=== PATIENT | male | born 1965 | race Caucasian/White ===

== ENCOUNTER 2017-06-14 18:45 | Inpatient (IN) ==
[2017-06-14] MEDS ORDERED: Aspirin 81 MG TAB.CHEW PO ONE (18:48)
--- NOTE | 2017-06-14 18:55 | Emergency Department Note ---
Disposition Clinical Impression: Duodenitis Pancreatitis Qualifiers: Chronicity: acute Pancreatitis type: unspecified pancreatitis type Acute pancreatitis complication: unspecified Qualified Code(s): K85.90 - Acute pancreatitis without necrosis or infection, unspecified Disposition: Admitted As Inpatient Condition: Good Referrals: Naya Pettit CNP [Primary Care Provider] - Time of Disposition: 22:11 Chest Pain HPI - General Chief Complaint: ED Chest Pain Stated Complaint: CP Time Seen by Provider: 06/14/17 18:48 Source: patient Mode of arrival: wheelchair Limitations: no limitations Vital Signs Reviewed: Yes Nursing Notes Reviewed: Yes - History of Present Illness HPI Narrative: 52-year-old male who comes in complaining of chest pain off and on all day. 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 Duration: intermittent Onset: during rest Pain Location: substernal, left chest Severity: none Quality: tightness, aching Pain Radiation: none Worsens with: nothing Associated symptoms: Denies: nausea, vomiting, diaphoresis Treatments prior to arrival chest pain: none - Related Data Home Medications Medication Instructions Recorded Confirmed Aspirin [Adult Low Dose Aspirin EC] 81 mg PO DAILY #0 03/16/15 06/19/15 Insulin DETEMIR [Levemir] 45 unit SQ BID #0 03/16/15 06/19/15 Insulin LISPRO [Humalog] 20 unit SQ BID #0 03/16/15 06/19/15 Lisinopril [Zestril] 0 mg PO DAILY #0 03/16/15 06/19/15 Albuterol Sulfate [Ventolin Hfa] 2 puff IH Q4H PRN 06/19/15 06/19/15 Cholecalciferol (Vitamin D3) 400 unit PO DAILY 06/19/15 06/19/15 [Vitamin D3] Cyclobenzaprine [Flexeril] 5 mg PO TID PRN 06/19/15 06/19/15 Furosemide [Lasix] 40 mg PO DAILY 06/19/15 06/19/15 Gabapentin [Neurontin] 600 mg PO BID 06/19/15 06/19/15 Mometasone/Formoterol [Dulera 100 2 puff IH BID 06/19/15 06/19/15 Mcg/5 Mcg Inhaler] Potassium Gluconate 75 mg PO DAILY 06/19/15 06/19/15 glyBURIDE [GlyBURIDE] 10 mg PO BID 06/19/15 06/19/15 metFORMIN [Glucophage] 1,000 mg PO BID 06/19/15 06/19/15 Previous Rx's Medication Instructions Recorded OxyCODONE/APAP 10/325 [Percocet 1 each PO Q6HR PRN #20 tablet 06/19/15 10/325 MG] Tamsulosin [Flomax] 0.4 mg PO DAILY #30 cap.er.24h 06/19/15 HYDROcodone/Acet 5/325 mg [[place] 1 tab PO Q6H #16 tab 05/20/16 5-325 mg] Tamsulosin [Flomax] 0.4 mg PO DAILY #21 cap.er.24h 05/20/16 HYDROcodone/Acet 5/325 mg [[place] 1 tab PO Q4H PRN #12 tab 09/03/16 5-325 mg] Ondansetron HCl [Zofran] 4 mg PO Q8HR PRN #24 tablet 09/03/16 Allergies Allergy/AdvReac Type Severity Reaction Status Date / Time Penicillins [PCN] AdvReac Unknown BLEEDING Verified 06/14/17 18:59 All systems ED: reviewed and negative except as stated. Constitutional: Denies: fever, chills, weakness, weight change Eyes: Denies: eye pain, eye discharge, vision change ENT ED: Denies: ear pain, throat pain, dental pain, hearing loss, epistaxis, congestion, dysphagia Cardiovascular: Reports: chest pain. Denies: palpitations, dyspnea on exertion , edema, syncope Respiratory: Denies: cough, dyspnea, wheezes, hemoptysis, stridor Gastrointestinal: Denies: abdominal pain, nausea, vomiting, diarrhea, constipation, hematemesis, melena, hematochezia Genitourinary: Denies: urgency, dysuria, frequency, hematuria Musculoskeletal: Denies: back pain, neck pain, arthralgia, myalgia Integumentary: Denies: rash, abrasion, lesions Neurological: Denies: headache, weakness, numbness, paresthesias, confusion, abnormal gait, vertigo Psychiatric: Denies: anxiety, depression, suicidal thoughts, homicidal thoughts , auditory hallucinations, visual hallucinations Endocrine: Denies: fatigue Hematological/Lymphatic: Denies: easy bleeding, easy bruising Allergic/Immunologic: Denies: facial swelling, urticaria Chest Pain PMH - Past Medical History Medical history: Reports: arthritis, CHF, COPD, diabetes, hypertension, kidney stones Surgical history: Reports: non-contributory Psychiatric history: Reports: no psych history - Social History Smoking Status: Current every day smoker Alcohol use: Reports: rarely Drug use: Reports: none Physical Exam - General Limitations: no limitations General appearance: alert, in no apparent distress - Head Head exam: atraumatic, normocephalic, normal inspection - Eye Eye exam: Present: normal appearance, PERRL, EOMI - ENT ENT exam: normal exam, normal oropharynx, mucous membranes moist - Neck Neck exam: Present: normal inspection, full ROM, trachea midline - Chest Chest inspection: Present: normal inspection, symmetric chest wall rise - Respiratory Respiratory exam: Present: normal lung sounds bilaterally - Cardiovascular Cardiovascular exam: Present: regular rate, normal rhythm, normal heart sounds - Abdominal Exam Abdominal exam: Present: soft, Non-Tender. Absent: tenderness, distention, guarding, rebound, rigidity - Extremities Exam Extremities exam: Present: normal inspection, full ROM. Absent: tenderness, pedal edema - Expanded Lower Extremity Exam Neurovascular/Tendon exam: Absent: motor deficit, sensory deficit, tendon deficit Gait: observed and normal - Back Exam Back exam: Present: normal inspection, full ROM. Absent: tenderness - Neurological Exam Neurological exam: Present: alert, oriented X3 - Psychiatric Psychiatric exam: Present: normal affect, normal mood - Skin Skin exam: Present: warm, dry, intact, normal color Course - Reevaluation(s) Reevaluation #1: A 52-year-old with lower chest pain and tenderness in the epigastrium. A CT scan shows duodenitis versus pancreatitis, cardiac workup is negative. Time: 22:11 - Consultations Consultation #1: Discussed with Dr. Martinez, admit Time: 22:35 Vital Signs Temperature 97.8 F 06/14/17 18:51 Pulse Rate 98 06/14/17 18:51 Respiratory Rate 20 06/14/17 18:51 Blood Pressure 138/106 06/14/17 18:51 O2 Sat by Pulse Oximetry 99 06/14/17 18:51 Temperature 97.8 F 06/14/17 18:51 Pulse Rate 84 06/14/17 21:45 Respiratory Rate 20 06/14/17 21:45 Blood Pressure 153/87 06/14/17 21:45 O2 Sat by Pulse Oximetry 99 06/14/17 21:45 Oxygen Delivery Oxygen Delivery Nasal Cannula Chest Pain - Lab Data Lab results reviewed: Yes I reviewed the patient's lab results. Result diagrams: 06/14/17 19:15 06/14/17 18:58 Lab Results 06/14/17 06/14/17 06/14/17 Range/Units 18:58 18:58 19:15 WBC (4.3-11.1) K/mcL RBC (4.19-5.50) M/mcL Hgb (12.9-16.9) g/dL Hct (37.5-50.1) % MCV (83.0-100.0) fL MCH (28.0-33.3) pg MCHC (31.6-35.5) g/dL RDW (11.5-14.5) % Plt Count (140-400) K/mcL MPV (9.4-12.4) fL Immature Gran % (0-4) % Seg Neutrophils % % Lymphocytes % % Monocytes % % Eosinophils % % Basophils % % Neutrophils # (1.6-8.9) K/mcL Lymphocytes # (0.6-4.6) K/mcL Monocytes # (0.0-1.3) K/mcL Eosinophils # (0.0-0.6) K/mcL Basophils # (0.0-0.2) K/mcL Platelet Estimate (Normal) PT 11.6 (9.4-12.1) Seconds INR 1.1 APTT 33.5 (26.0-36.0) Seconds Sodium 130 L (136-145) mEq/L Potassium 5.0 (3.5-5.1) mEq/L Chloride 96 L (98-107) mEq/L Carbon Dioxide 23 (23-29) mEq/L BUN 21 H (6-20) mg/dL Creatinine 0.87 (0.70-1.30) mg/dL Est GFR ( Amer) > 60 (> 60) Est GFR (Non-Af Amer) > 60 (> 60) BUN/Creatinine Ratio 24 (6-26) Glucose 514 H* (70-105) mg/dL Calculated Osmolality 296 (280-300) Calcium 9.4 (8.6-10.3) mg/dL Troponin I < 0.03 (< 0.04) ng/mL 06/14/17 Range/Units 19:15 WBC 26.4 H (4.3-11.1) K/mcL RBC 4.72 (4.19-5.50) M/mcL Hgb 14.7 (12.9-16.9) g/dL Hct 43.9 (37.5-50.1) % MCV 93.0 (83.0-100.0) fL MCH 31.1 (28.0-33.3) pg MCHC 33.5 (31.6-35.5) g/dL RDW 11.9 (11.5-14.5) % Plt Count 263 (140-400) K/mcL MPV 10.5 (9.4-12.4) fL Immature Gran % 2.3 (0-4) % Seg Neutrophils % 77.2 % Lymphocytes % 13.6 % Monocytes % 5.7 % Eosinophils % 0.7 % Basophils % 0.5 % Neutrophils # 20.4 H (1.6-8.9) K/mcL Lymphocytes # 3.6 (0.6-4.6) K/mcL Monocytes # 1.5 H (0.0-1.3) K/mcL Eosinophils # 0.2 (0.0-0.6) K/mcL Basophils # 0.1 (0.0-0.2) K/mcL Platelet Estimate Normal (Normal) PT (9.4-12.1) Seconds INR APTT (26.0-36.0) Seconds Sodium (136-145) mEq/L Potassium (3.5-5.1) mEq/L Chloride (98-107) mEq/L Carbon Dioxide (23-29) mEq/L BUN (6-20) mg/dL Creatinine (0.70-1.30) mg/dL Est GFR ( Amer) (> 60) Est GFR (Non-Af Amer) (> 60) BUN/Creatinine Ratio (6-26) Glucose (70-105) mg/dL Calculated Osmolality (280-300) Calcium (8.6-10.3) mg/dL Troponin I (< 0.04) ng/mL - Radiology Data Radiology results reviewed: Yes I reviewed the patient's radiology results. Chest X-Ray 06/14/17 18:48 IMPRESSION: No radiographic evidence of acute cardiopulmonary disease. D/ / Velasquez Beal / Velasquez Beal Interpreting Provider: Velasquez Beal Chest CTA 06/14/17 20:29 IMPRESSION: Although there is suboptimal contrast enhancement of the aorta, there is no convincing evidence of thoracic or abdominal aortic dissection. Fat stranding within the anterior pararenal space, which is most likely secondary to with acute interstitial pancreatitis. A less likely consideration would be duodenitis. Correlation with laboratory values would be helpful. Diffuse fatty liver infiltration. D/ / Jaime Emmanuel MD / Jaime Emmanuel MD Interpreting Provider: Jaime Emmanuel MD Abdomen/Pelvis CTA 06/14/17 20:31 IMPRESSION: Although there is suboptimal contrast enhancement of the aorta, there is no convincing evidence of thoracic or abdominal aortic dissection. Fat stranding within the anterior pararenal space, which is most likely secondary to with acute interstitial pancreatitis. A less likely consideration would be duodenitis. Correlation with laboratory values would be helpful. Diffuse fatty liver infiltration. D/ / Jaime Emmanuel MD / Jaime Emmanuel MD Interpreting Provider: Jaime Emmanuel MD - EKG Data EKG attestation: Yes I reviewed and interpreted this EKG. EKG shows normal: sinus rhythm Rate: normal Rhythm: NSR [place]/QRS: normal Interpretation: no acute changes Heart Score - Score History: Moderately Suspicious EKG: Normal Age: 45-65 Risk Factors: Equal/Greater than 3 risk factor or history of atherosclerotic disease Troponin: Less than normal limit HEART Score Total: 4
[2017-06-14 19:40] LABS: Eosinophils % 0.7 %; Mean Corpuscular Hemoglobin 31.1 pg (28.0-33.3)
[2017-06-14 19:41] LABS: Basophils # 0.1 K/mcL (0.0-0.2); Basophils % 0.5 %; Eosinophils # 0.2 K/mcL (0.0-0.6); Hematocrit 43.9 % (37.5-50.1); Hemoglobin 14.7 g/dL (12.9-16.9); Immature Granulocytes % 2.3 % (0-4); Lymphocytes # 3.6 K/mcL (0.6-4.6); Lymphocytes % 13.6 %; Mean Corpuscular HGB Conc 33.5 g/dL (31.6-35.5); Mean Platelet Volume 10.5 fL (9.4-12.4); Monocytes # 1.5 K/mcL (0.0-1.3); Monocytes % 5.7 %; Neutrophils # 20.4 K/mcL (1.6-8.9); Platelet Count 263 K/mcL (140-400); Red Blood Count 4.72 M/mcL (4.19-5.50); Red Cell Distribution Width 11.9 % (11.5-14.5); Segmented Neutrophils % 77.2 %
[2017-06-14 19:45] LABS: INR 1.1; Prothrombin Time 11.6 Seconds (9.4-12.1)
[2017-06-14 19:48] LABS: Activated Partial Thrombo Time 33.5 Seconds (26.0-36.0)
[2017-06-14 20:10] LABS: BUN/Creatinine Ratio 24 (6-26); Blood Urea Nitrogen 21 mg/dL (6-20); Calcium 9.4 mg/dL (8.6-10.3); Carbon Dioxide 23 mEq/L (23-29); Chloride 96 mEq/L (98-107); Glucose 514 mg/dL (70-105); Osmolality,Calculated 296 (280-300); Sodium 130 mEq/L (136-145); eGFR For African Americans > 60 (> 60); eGFR For Non-African Americans > 60 (> 60)
[2017-06-14] MEDS ORDERED: *HR* FentaNYL (PF) 100 MCG/2 ML VIAL IVP ONE ×2 (20:28→21:20)
[2017-06-14] MEDS ORDERED: Ondansetron 4 MG/2 ML VIAL IVP ONE (20:28)
[2017-06-14 20:49] LABS: Platelet Estimate Normal (Normal)
[2017-06-14] MEDS ORDERED: MetroNIDAZOLE 500 MG/100 ML 500 MG/100 ML BAG IVPB ONE (22:10)
[2017-06-14] MEDS ORDERED: Levofloxacin 750 MG/150 ML 750 MG/150 ML BAG IVPB ONE (22:10)
[2017-06-14] MEDS ORDERED: *HR* OxyCODONE/APAP 10/325 TABLET PO ONE (22:16)
[2017-06-14] MEDS ORDERED: Insulin Human Regular 10 UNIT in 0.9 % Sodium Chloride 10 ML IV ONE (22:25)
[2017-06-14 23:16] LABS: Alanine Aminotransferase 31 Units/L (7-52); Albumin 3.9 g/dL (3.5-5.7); Albumin/Globulin Ratio 1.4 (1.1-2.2); Alkaline Phosphatase 88 Units/L (34-104); Amylase 105 Units/L (29-103); Aspartate Amino Transferase 22 Units/L (13-39); Bilirubin,Direct 0.1 mg/dL (0.0-0.2); Bilirubin,Indirect 0.5 mg/dL (0.0-1.2); Bilirubin,Total 0.6 mg/dL (0.3-1.0); Globulin 2.8 g/dL (2.4-3.5); Lipase 702 Units/L (11-82); Total Protein 6.7 g/dL (6.4-8.9)
[2017-06-15] MEDS ORDERED: Ondansetron 4 MG/2 ML VIAL IVP PRN (00:48)
[2017-06-15] MEDS ORDERED: *HR* FentaNYL (PF) 100 MCG/2 ML VIAL IVP PRN (00:48)
[2017-06-15] MEDS ORDERED: Naloxone 0.4 MG/ML INJ IVP PRN (00:48)
[2017-06-15] MEDS ORDERED: Dextrose Gel 15 GM/37.5 ML TUBE PO PRN ×2 (00:57)
[2017-06-15] MEDS ORDERED: D5% in Water 1,000 ML IVC PRN (00:57)
[2017-06-15] MEDS ORDERED: *HR* Dextrose 50 % in Water (Syg) 50 ML SYRINGE IVP PRN (00:57)
[2017-06-15] MEDS ORDERED: Pantoprazole 40 MG VIAL IVP ONE (01:01)
[2017-06-15] MEDS ORDERED: Albuterol 2.5 MG/3 ML NEBULIZER IH PRN (01:01)
[2017-06-15] MEDS: 0.9 % Sodium Chloride 1,000 ML IVC SCH ×2 (01:45→08:30)
--- NOTE | 2017-06-15 01:54 | Internal Med History&Physical ---
Date of Encounter: 06/15/17 Time of Encounter: 00:10 Assessment and Plan (1) Pancreatitis Current visit: Yes Status: Acute 1. Will keep npo and place on IVF. 2. Pain control with oral and IV narcotics for breakthrough pain. 3. Anti-emetics for nausea. 4. Will trend pancreatic enzymes. 5. Will order GB ultrasound to rule out GB disease. 6. Given leukocytosis and possible duodenitis, will place on IV antibiotics and order blood cultures. Qualifiers: Chronicity: acute Pancreatitis type: idiopathic Acute pancreatitis complication: unspecified Qualified Code(s): K85.00 - Idiopathic acute pancreatitis without necrosis or infection (2) COPD (chronic obstructive pulmonary disease) Current visit: Yes Status: Chronic 1. Will place on scheduled Duoneb and PRN albuterol aerosols. 2. Continue home meds as appropriate. 3. Nicotine patch daily. Qualifiers: COPD type: emphysema Emphysema type: panlobular Qualified Code(s): J43.1 - Panlobular emphysema (3) Diabetes mellitus type 2 in obese Current visit: Yes Status: Chronic 1. Will hold home meds and monitor glucose Q6H while npo. 2. Will use SSI Q6H and adjust as necessary. (4) GERD (gastroesophageal reflux disease) Current visit: Yes Status: Acute 1. Will place on IV PPI BID. 2. Patient may need EGD this hospital stay as there is concern he may have duodenitis. Qualifiers: Esophagitis presence: esophagitis presence not specified Qualified Code(s) : K21.9 - Gastro-esophageal reflux disease without esophagitis (5) DVT prophylaxis Current visit: Yes Status: Acute 1. Heparin SQ. Internal Medicine - H&P: HPI Chief complaint: chest pain; abdominal pain Admitted From: Emergency Dept Plans for Post Hospital Care: Home History of present illness: Mr. Arreaga is a 52 year old male who presents with sudden onset of chest pain, epigastric pain nausea, and vomiting. Symptoms started early yesterday and progressively worsened throughout the day. The pain radiated to his mid back. Due to the persistence and worsening of symptoms, his brought him to the ER. In the ER, he had CT angiogram of his chest and abdomen to rule out aortic dissection. This was negative. However, there were findings concerning for pancreatitis. Laboratory evidence confirmed pancreatitis. He was subsequently admitted to the hospitalist service. Upon my assessment of the patient, he notes his pain is mostly around his epigastrium. It does radiate to his chest, right upper quadrant, and mid back. He has never had pancreatitis before. He denies any heavy alcohol use. He drinks rare alcohol roughly once a month. He has no history of gallstones, but he does have his gallbladder. He is a poorly controlled diabetic, and he smokes 2 packs per day. He also states he has been having severe acid reflux for the last several days. He takes ranitidine, but his GERD symptoms have worsened over the last few days. He denies any fevers, but he has had cough and congestion for the last several weeks. He has been treated for pneumonia as an outpatient by his PCP, and he has been on some tapering steroids as well for his COPD. Past Med Surg Social Fam HX - Past Medical History Attestation: Yes The following information was validated with the patient. Source: patient, old records reviewed, obtained from family Medical history: arthritis, CHF, COPD, diabetes, hypertension, kidney stones Psychiatric history: no psych history - Past Surgical History Surgical History: appendectomy - Social History Smoking Status: Current every day smoker Smokeless Tobacco Status: No Alcohol use: rarely Drug use: none Current living situation: Home, With Family Activity Level: Independent ambulation Recent Out of Country Travel Within the Last 8 Weeks: No - Family History Mother History Unknown: Yes - Additional Family History Additional family history: No FH gallstones, pancreatitis. + FH for diabetes Internal Medicine - H&P: Meds Aspirin [Adult Low Dose Aspirin EC] 81 mg PO DAILY #0 03/16/15 [History] Insulin DETEMIR [Levemir] 45 unit SQ BID #0 03/16/15 [History] Insulin LISPRO [Humalog] 20 unit SQ BID #0 03/16/15 [History] Lisinopril [Zestril] 0 mg PO DAILY #0 03/16/15 [History] Albuterol Sulfate [Ventolin Hfa] 2 puff IH Q4H PRN 06/19/15 [History] Cholecalciferol (Vitamin D3) [Vitamin D3] 400 unit PO DAILY 06/19/15 [History] Furosemide [Lasix] 40 mg PO DAILY 06/19/15 [History] Gabapentin [Neurontin] 600 mg PO BID 06/19/15 [History] Mometasone/Formoterol [Dulera 100 Mcg/5 Mcg Inhaler] 2 puff IH BID 06/19/15 [ History] OxyCODONE/APAP 10/325 [Percocet 10/325 MG] 1 each PO Q6HR PRN #20 tablet [Rx] Potassium Gluconate 75 mg PO DAILY 06/19/15 [History] Tamsulosin [Flomax] 0.4 mg PO DAILY #30 cap.er.24h 06/19/15 [Rx] glyBURIDE [GlyBURIDE] 10 mg PO BID 06/19/15 [History] metFORMIN [Glucophage] 1,000 mg PO BID 06/19/15 [History] HYDROcodone/Acet 5/325 mg [[place] 5-325 mg] 1 tab PO Q6H #16 tab 05/20/16 [Rx] Tamsulosin [Flomax] 0.4 mg PO DAILY #21 cap.er.24h 05/20/16 [Rx] HYDROcodone/Acet 5/325 mg [[place] 5-325 mg] 1 tab PO Q4H PRN #12 tab 09/03/16 [Rx ] Ondansetron HCl [Zofran] 4 mg PO Q8HR PRN #24 tablet 09/03/16 [Rx] Cyclobenzaprine 10 mg PO TID 06/14/17 [History] 3 Allergy/AdvReac Type Severity Reaction Status Date / Time Penicillins [PCN] AdvReac Unknown BLEEDING Verified 06/14/17 18:59 - Constitutional Constitutional: no chills, no fever(s), no lethargy - EENT Eyes: no blurry vision, no change in vision Ears: no ear pain, no tinnitus Nose, mouth and throat: no nasal congestion, no sinus pain, no sinus pressure, no sore throat - Cardiovascular Cardiovascular ROS IM: chest pain, diaphoresis, dyspnea, no edema, no syncope - Respiratory Respiratory: cough, dyspnea, wheezing, chest congestion, excessive phlegm production, change in phlegm color, no hemoptysis, no pain on inspiration, no pain with cough - Gastrointestinal Gastrointestinal: abdominal pain, belching, heartburn, nausea, vomiting, no hematemesis, no melena - Genitourinary Genitourinary ROS male: no dysuria, no flank pain, no hematuria - Musculoskeletal Musculoskeletal ROS IM: back pain (chronic), no numbness - Integumentary Integumentary IM: no rash, no jaundice - Neurological Neurological ROS: no dizziness, no focal weakness, no frequent falls - Psychiatric Psychiatric: no anxiety, no depression - Endocrine Endocrine IM: no polydipsia, no polyphagia, no polyuria - Hematologic/Lymphatic Hematologic/Lymphatic: no easy bruising, no lymphadenopathy - Allergic/Immunologic Allergic/Immunologic: wheezing, GI upset with certain foods - Constitutional Vitals: Temp Pulse Resp BP Pulse Ox 98.4 F 94 16 150/105 99 06/15/17 00:04 06/15/17 00:04 06/15/17 00:04 06/15/17 00:04 06/15/17 00:04 General appearance: Present: mild distress, A&O X 3, obese, answers questions appropriately - Head Head exam: Present: atraumatic, normal inspection - Eye Eye exam: Present: conjunctival injection, normal appearance, PERRL. Absent: scleral icterus Pupils: Present: normal accommodation - ENT ENT exam: Present: mucous membranes dry, normal exam, normal external ear exam - Neck Neck exam general surgery: Present: full ROM, supple. Absent: lymphadenopathy, tenderness, nuchal rigidity - Respiratory Respiratory exam: Present: decreased breath sounds, prolonged expiratory phase, wheezes. Absent: accessory muscle use, chest wall tenderness, rales, rhonchi - Cardiovascular Cardiovascular exam: Present: distant heart sounds, RRR, +S1, +S2. Absent: diastolic murmur, systolic murmur - GI/Abdominal GI/Abdominal exam: Present: guarding, hypoactive bowel sounds, tenderness (mid- epigastrium), no peritoneal signs. Absent: hepatomegaly, mass, rebound, splenomegaly - Extremities Exam Extremities exam: Present: full ROM, normal capillary refill, warm, radial pulses palpable and symmetrical. Absent: calf tenderness, tenderness - Back Exam Back exam: Absent: CVA tenderness (L), CVA tenderness (R) - Neurological Exam Neurological exam: Present: alert, CN II-XII intact, oriented X3, no focal deficits - Psychiatric Psychiatric exam: Present: normal affect, normal mood - Skin Skin exam: Present: dry, warm. Absent: rash Internal Med - H&P Results - Labs CBC & Chem 7: 06/14/17 19:15 06/14/17 18:58 - EKG Data -: EKG Interpreted by Myself EKG shows normal: sinus rhythm - EKG Data Prior EKG available for review: no EKG comments: 06/15/17 02:07 NSR; no acute changes - Diagnostic Studies Chest x-ray Status: image reviewed by me (negative) CT scan - chest Additional comments: Report reviewed -- no aortic dissection
[2017-06-15 04:46] LABS: Hemoglobin 14.8 g/dL (12.9-16.9); Red Cell Distribution Width 11.9 % (11.5-14.5)
[2017-06-15 04:48] LABS: Hematocrit 44.3 % (37.5-50.1); Mean Corpuscular HGB Conc 33.4 g/dL (31.6-35.5); Mean Corpuscular Hemoglobin 31.1 pg (28.0-33.3); Mean Corpuscular Volume 93.1 fL (83.0-100.0); Mean Platelet Volume 10.1 fL (9.4-12.4); Platelet Count 262 K/mcL (140-400); Red Blood Count 4.76 M/mcL (4.19-5.50)
[2017-06-15 05:02] LABS: Alanine Aminotransferase 30 Units/L (7-52); Albumin 3.9 g/dL (3.5-5.7); Albumin/Globulin Ratio 1.2 (1.1-2.2); Alkaline Phosphatase 91 Units/L (34-104); Aspartate Amino Transferase 19 Units/L (13-39); BUN/Creatinine Ratio 25 (6-26); Bilirubin,Total 0.7 mg/dL (0.3-1.0); Blood Urea Nitrogen 17 mg/dL (6-20); Calcium 8.9 mg/dL (8.6-10.3); Carbon Dioxide 23 mEq/L (23-29); Chloride 98 mEq/L (98-107); Chol/HDL Ratio 4.2 (0-4.9); Cholesterol 131 mg/dL (< 200); Globulin 3.3 g/dL (2.4-3.5); Glucose 344 mg/dL (70-105); HDL Cholesterol 31 mg/dL (40-59); Hemoglobin A1C 11.1 %; LDL Cholesterol,Calculated 45 mg/dL (0-99); Osmolality,Calculated 285 (280-300); Potassium 4.9 mEq/L (3.5-5.1); Sodium 130 mEq/L (136-145); Total Protein 7.2 g/dL (6.4-8.9); Triglycerides 276 mg/dL (< 150); eGFR For African Americans > 60 (> 60); eGFR For Non-African Americans > 60 (> 60)
[2017-06-15 05:24] LABS: Eosinophils # 0.6 K/mcL (0.0-0.6); Lymphocytes # 4.6 K/mcL (0.6-4.6); Monocytes # 2.3 K/mcL (0.0-1.3); Neutrophils # 21.1 K/mcL (1.6-8.9); Platelet Estimate Normal (Normal)
[2017-06-15] MEDS: Ipratropium/Albuterol Neb 3 ML IH SCH ×6 (05:24→23:47)
[2017-06-15] MEDS: Insulin LISPRO 300 UNITS/3 ML VIAL SQ SCH ×3 (05:30→17:34)
[2017-06-15] MEDS: Pantoprazole 40 MG VIAL IVP SCH ×2 (05:35→17:33)
[2017-06-15 05:40] LABS: Amylase 159 Units/L (29-103); Lipase 1039 Units/L (11-82)
[2017-06-15] MEDS ORDERED: *HR* OxyCODONE/APAP 10/325 TABLET PO SCH (06:00)
[2017-06-15] MEDS: MetroNIDAZOLE 500 MG/100 ML 500 MG/100 ML BAG IVPB SCH ×2 (08:28→16:30)
[2017-06-15] MEDS: Nicotine 21 MG PATCH.TD24 TD SCH (08:29)
[2017-06-15] MEDS: *HR* Heparin 5,000 UNIT/ML VIAL SQ SCH ×2 (08:29→16:30)
[2017-06-15] MEDS: Insulin DETEMIR 100 UNIT/ML X5UNITS SQ SCH ×2 (08:50→21:59)
[2017-06-15] MEDS ORDERED: Lisinopril 20 MG TABLET PO SCH ×2 (09:00)
[2017-06-15] MEDS ORDERED: Nicotine 21 MG PATCH.TD24 TD SCH (09:00)
[2017-06-15] MEDS: *HR* OxyCODONE/APAP 10/325 TABLET PO PRN ×3 (11:23→20:00)
[2017-06-15] MEDS ORDERED: Furosemide 40 MG TABLET PO SCH (17:00)
--- NOTE | 2017-06-15 17:01 | Event Note ---
Date of Encounter: 06/15/17 Time of Encounter: 09:30 52-year-old male with morbid obesity, COPD, tobacco abuse, hypertension, diabetes, chronic back pain, admitted with epigastric and upper abdominal pain. Seen and examined at bedside. Continues to report significant abdominal pain, requesting Percocet. Awake, alert and oriented 3. Morbidly obese. Blood pressure noted to be elevated. Chest-S1, S2 heard. Lungs are clear to auscultation. Abdomen is obese, tenderness in epigastrium, right and left upper quadrants. No guarding or rigidity. Labs reviewed-mildly worsening leukocytosis at 28.5, serum lipase elevated, hemoglobin A1c 11.1% Acute pancreatitis-CT angiogram of chest and abdomen showed no evidence of thoracic or abdominal aortic dissection. Fat stranding in the anterior pararenal space, likely due to acute interstitial pancreatitis. Serum lipase noted to be elevated at 1039. Liver enzymes, bilirubin noted to be normal. Triglycerides only mildly elevated at 276. Right upper quadrant ultrasound shows no evidence of gallbladder wall thickening or gallstones, common bile duct normal caliber. Continue supportive care with pain control with when necessary IV fentanyl and oral Percocet, when necessary antiemetics, IV hydration. Ice chips and clear liquids as tolerated. Uncontrolled diabetes mellitus-not on insulin at home, however hemoglobin A1c noted to be 11.1%. Blood sugars noted to be elevated. Start basal bolus insulin regimen with Accu-Chek blood glucose monitoring.
[2017-06-15] MEDS: Levofloxacin 750 MG/150 ML 750 MG/150 ML BAG IVPB SCH (17:33)
[2017-06-15] MEDS: Pregabalin 50 MG CAPSULE PO SCH (20:00)
[2017-06-16] MEDS: *HR* OxyCODONE/APAP 10/325 TABLET PO PRN ×6 (00:06→21:13)
[2017-06-16] MEDS: MetroNIDAZOLE 500 MG/100 ML 500 MG/100 ML BAG IVPB SCH ×3 (00:06→15:22)
[2017-06-16] MEDS: *HR* Heparin 5,000 UNIT/ML VIAL SQ SCH ×3 (00:09→15:27)
[2017-06-16] MEDS: Ipratropium/Albuterol Neb 3 ML IH SCH ×6 (04:10→23:27)
[2017-06-16] MEDS: Pantoprazole 40 MG VIAL IVP SCH ×2 (05:19→17:06)
[2017-06-16 06:16] LABS: Basophils # 0.1 K/mcL (0.0-0.2); Basophils % 0.3 %; Eosinophils # 0.1 K/mcL (0.0-0.6); Eosinophils % 0.6 %; Hemoglobin 14.2 g/dL (12.9-16.9); Immature Granulocytes % 1.3 % (0-4); Lymphocytes # 4.1 K/mcL (0.6-4.6); Lymphocytes % 18.7 %; Mean Corpuscular Volume 93.9 fL (83.0-100.0); Mean Platelet Volume 10.4 fL (9.4-12.4); Monocytes # 1.8 K/mcL (0.0-1.3); Monocytes % 8.5 %; Neutrophils # 15.3 K/mcL (1.6-8.9); Platelet Count 225 K/mcL (140-400); Red Blood Count 4.58 M/mcL (4.19-5.50); Segmented Neutrophils % 70.6 %
[2017-06-16 06:28] LABS: BUN/Creatinine Ratio 20 (6-26); Blood Urea Nitrogen 11 mg/dL (6-20); Calcium 8.4 mg/dL (8.6-10.3); Carbon Dioxide 20 mEq/L (23-29); Chloride 99 mEq/L (98-107); Glucose 231 mg/dL (70-105); Lipase 357 Units/L (11-82); Osmolality,Calculated 279 (280-300); Potassium 4.2 mEq/L (3.5-5.1); Sodium 131 mEq/L (136-145); eGFR For African Americans > 60 (> 60); eGFR For Non-African Americans > 60 (> 60)
[2017-06-16] MEDS: Lisinopril 20 MG TABLET PO SCH (08:36)
[2017-06-16] MEDS: Loratadine 10 MG TABLET PO SCH (08:36)
[2017-06-16] MEDS: Pregabalin 50 MG CAPSULE PO SCH ×2 (08:37→21:12)
[2017-06-16] MEDS: Nicotine 21 MG PATCH.TD24 TD SCH (08:38)
[2017-06-16] MEDS: Insulin LISPRO 300 UNITS/3 ML VIAL SQ SCH ×3 (08:44→17:40)
[2017-06-16] MEDS: Insulin DETEMIR 100 UNIT/ML X5UNITS SQ SCH ×2 (08:47→21:14)
[2017-06-16] MEDS ORDERED: Ketorolac 30 MG/ML VIAL IVP ONE (11:27)
--- NOTE | 2017-06-16 15:21 | Electrocardiograph Report ---
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
--- NOTE | 2017-06-16 16:13 | Electrocardiograph Report ---
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
[2017-06-16] MEDS: Levofloxacin 750 MG/150 ML 750 MG/150 ML BAG IVPB SCH (17:06)
[2017-06-16] MEDS: Furosemide 40 MG TABLET PO SCH (17:06)
--- NOTE | 2017-06-16 17:30 | Internal Med Progress Note ---
Date of Encounter: 06/16/17 Time of Encounter: 11:00 - Assessment and plan (1) Pancreatitis Current Visit: Yes Status: Acute Assessment and plan: Serum lipase improving. Right upper quadrant ultrasound showed no evidence of gallstones, gallbladder wall thickening, common bile duct normal caliber. Clinically improving with improved abdominal pain. Advance diet as tolerated. Continue supportive care, pain control with when necessary oral Percocet, when necessary antiemetics. Leukocytosis improving. Qualifiers: Chronicity: acute Pancreatitis type: idiopathic Acute pancreatitis complication: unspecified Qualified Code(s): K85.00 - Idiopathic acute pancreatitis without necrosis or infection (2) Duodenitis Current Visit: Yes Status: Acute Assessment and plan: Has been started on IV antibiotics-Levaquin and Flagyl. May not require at discharge. (3) Tobacco abuse Current Visit: Yes Status: Chronic Assessment and plan: Continue nicotine transdermal patch. requests for a prescription at the time of discharge. (4) Essential hypertension Current Visit: Yes Status: Chronic (5) GERD (gastroesophageal reflux disease) Current Visit: Yes Status: Chronic Qualifiers: Esophagitis presence: esophagitis presence not specified Qualified Code(s) : K21.9 - Gastro-esophageal reflux disease without esophagitis (6) COPD (chronic obstructive pulmonary disease) Current Visit: Yes Status: Chronic Assessment and plan: Not in acute exacerbation. Continue when necessary bronchodilators nebulization and supplemental oxygen. requests for nebulizer prescription at the time of discharge. Qualifiers: COPD type: emphysema Emphysema type: panlobular Qualified Code(s): J43.1 - Panlobular emphysema (7) Diabetes mellitus type 2 in obese Current Visit: Yes Status: Chronic Assessment and plan: Noted to have uncontrolled diabetes with elevated blood sugars. Not on insulin at home. Hemoglobin A1c noted to be 11.1%. Blood sugars better controlled, in 200s today. Discussed with patient and regarding beginning insulin at home , however patient is reluctant at this time. Explained lifestyle modifications like weight loss, exercise, diabetic diet. Dietitian consult for ADA dietary information. Continue Accu-Chek blood glucose monitoring with basal bolus insulin regimen. - Subjective Interval history: Feels better today. Improving abdominal pain but still requires oral pain medications for appropriate control. No nausea, vomiting, diarrhea. Feels hungry but poor appetite as the food does not taste good. - Constitutional Vitals: Temp Pulse Resp BP Pulse Ox 98.3 F 108 22 115/76 98 06/16/17 14:36 06/16/17 14:36 06/16/17 14:57 06/16/17 14:36 06/16/17 14:57 General appearance: Present: A&O X 3, obese, answers questions appropriately - Respiratory Respiratory exam: Present: CTAB. Absent: accessory muscle use, rales, rhonchi, wheezes - Cardiovascular Cardiovascular exam: Present: RRR, +S1, +S2. Absent: diastolic murmur, gallop, rubs, systolic murmur - GI/Abdominal GI/Abdominal exam: Present: normal bowel sounds, soft (obese), no peritoneal signs. Absent: distended, tenderness - Extremities Exam Extremities exam: Present: full ROM, warm, radial pulses palpable and symmetrical. Absent: calf tenderness, cyanotic, pedal edema Internal Medicine: Result - Labs CBC & Chem 7: 06/16/17 05:14 06/16/17 05:14 Labs: Short CBC 06/16/17 Range/Units 05:14 WBC 21.7 H (4.3-11.1) K/mcL Hgb 14.2 (12.9-16.9) g/dL Hct 43.0 (37.5-50.1) % Plt Count 225 (140-400) K/mcL Neutrophils # 15.3 H (1.6-8.9) K/mcL BMP 06/16/17 05:14 Sodium 131 L Potassium 4.2 Chloride 99 Carbon Dioxide 20 L BUN 11 Creatinine 0.56 L Glucose 231 H Calcium 8.4 L Cardiac Enzymes 06/15/17 Range/Units 16:13 Troponin I < 0.03 (< 0.04) ng/mL - ABG Interpretation ABG results: PT/INR, D-dimer PT 11.6 Seconds (9.4-12.1) 06/14/17 19:15 Consult Discharge Plan - Plan Instructions: Meal Planning with the Plate Model (GEN), Meal Planning with Diabetes Exchanges (GEN) Referrals: Naya Pettit CNP [Primary Care Provider] - 06/29/17 11:00 am
[2017-06-16] MEDS ORDERED: Insulin LISPRO 300 UNITS/3 ML VIAL SQ SCH (21:00)
[2017-06-17] MEDS: *HR* Heparin 5,000 UNIT/ML VIAL SQ SCH ×2 (00:04→08:36)
[2017-06-17] MEDS: MetroNIDAZOLE 500 MG/100 ML 500 MG/100 ML BAG IVPB SCH ×2 (00:05→08:37)
[2017-06-17] MEDS: *HR* OxyCODONE/APAP 10/325 TABLET PO PRN ×3 (01:13→10:44)
[2017-06-17] MEDS: Ipratropium/Albuterol Neb 3 ML IH SCH ×3 (03:57→10:24)
[2017-06-17 05:14] LABS: Basophils # 0.1 K/mcL (0.0-0.2); Basophils % 0.4 %; Eosinophils # 0.2 K/mcL (0.0-0.6); Eosinophils % 0.8 %; Hematocrit 43.7 % (37.5-50.1); Hemoglobin 14.6 g/dL (12.9-16.9); Lymphocytes # 4.6 K/mcL (0.6-4.6); Lymphocytes % 23.2 %; Mean Corpuscular HGB Conc 33.4 g/dL (31.6-35.5); Mean Corpuscular Volume 92.8 fL (83.0-100.0); Mean Platelet Volume 10.3 fL (9.4-12.4); Monocytes # 1.6 K/mcL (0.0-1.3); Monocytes % 7.9 %; Neutrophils # 13.2 K/mcL (1.6-8.9); Platelet Count 222 K/mcL (140-400); Red Blood Count 4.71 M/mcL (4.19-5.50); Red Cell Distribution Width 11.9 % (11.5-14.5); Segmented Neutrophils % 66.7 %
[2017-06-17] MEDS: Pantoprazole 40 MG VIAL IVP SCH (06:06)
[2017-06-17] MEDS: Pregabalin 50 MG CAPSULE PO SCH (08:35)
[2017-06-17] MEDS: Nicotine 21 MG PATCH.TD24 TD SCH (08:35)
[2017-06-17] MEDS: Furosemide 40 MG TABLET PO SCH (08:36)
[2017-06-17] MEDS: Lisinopril 20 MG TABLET PO SCH (08:36)
[2017-06-17] MEDS: Loratadine 10 MG TABLET PO SCH (08:36)
[2017-06-17] MEDS: Insulin LISPRO 300 UNITS/3 ML VIAL SQ SCH ×2 (08:36→12:31)
[2017-06-17] MEDS: Insulin DETEMIR 100 UNIT/ML X5UNITS SQ SCH (08:43)
[2017-06-17 10:40] VITALS: BP 117/71
--- NOTE | 2017-06-17 12:47 | Discharge Summary ---
- NOTES TO OUTPATIENT PROVIDER Notes to Outpatient Provider: Pancreatitis improved; uncontrolled DM, please f/ up sugars, possible insulin Date of Encounter: 06/17/17 Time of Encounter: 12:45 - Discharge Diagnosis (1) Pancreatitis Priority: Primary Status: Acute Qualifiers: Chronicity: acute Pancreatitis type: idiopathic Acute pancreatitis complication: unspecified Qualified Code(s): K85.00 - Idiopathic acute pancreatitis without necrosis or infection (2) Duodenitis Priority: Primary Status: Ruled-out (3) Tobacco abuse Priority: Secondary Status: Chronic (4) Essential hypertension Priority: Secondary Status: Chronic (5) GERD (gastroesophageal reflux disease) Priority: Secondary Status: Chronic Qualifiers: Esophagitis presence: esophagitis presence not specified Qualified Code(s) : K21.9 - Gastro-esophageal reflux disease without esophagitis (6) COPD (chronic obstructive pulmonary disease) Priority: Secondary Status: Chronic Qualifiers: COPD type: emphysema Emphysema type: panlobular Qualified Code(s): J43.1 - Panlobular emphysema (7) Diabetes mellitus type 2 in obese Priority: Secondary Status: Chronic Hospital course: Mr. Arreaga is a 52 year old male with the above medical problems who was admitted with chest and epigastric pain and tenderness. He was noted to have elevated serum amylase and lipase. CT angiogram of chest and abdomen showed no evidence of aortic dissection or pulmonary embolism, showed changes suggestive of acute interstitial pancreatitis. He was started on conservative medical management with bowel rest, IV hydration, pain control with when necessary IV fentanyl and oral Percocet, when necessary antiemetics. He gradually improved and is currently able to tolerate oral diet. Patient also had significant leukocytosis at the time of admission and was started on empiric IV antibiotics-ciprofloxacin and Flagyl for possible duodenitis as noted on CT abdomen. His leukocytosis is likely related to pancreatitis, currently improving, no further indication for antibiotics. Patient is noted to have uncontrolled diabetes with hemoglobin A1c 11.1%. He is noted to be noncompliant with diet and exercise, moderately obese. He has been explained about the need for initiation of insulin multiple times, however patient and his declined insulin at this time. He was explained about lifestyle modifications like weight loss, exercise and dietary restrictions, he was also provided with information regarding ADA diet. He is encouraged to maintain log of blood sugars checks and discuss with his primary care provider. Patient verbalized understanding. Discharge discussed with: patient, family Time spent discussing smoking cessation with patient: 3 to 10 minutes - Time Spent with Patient Total time spent providing and/or coordinating discharge services: Greater than 30 minutes (45 min) - Discharge Medications Prescriptions: Metoprolol [Lopressor] 12.5 mg PO BID #30 tablet Nicotine Patch [Nicoderm] 21 mg TD DAILY #30 patch.td24 Home Medications: Aspirin [Adult Low Dose Aspirin EC] 81 mg PO DAILY #0 03/16/15 [History] Lisinopril [Zestril] 40 mg PO DAILY #0 03/16/15 [History] Albuterol Sulfate [Ventolin Hfa] 2 puff IH Q4H PRN 06/19/15 [History] Furosemide [Lasix] 40 mg PO BID 06/19/15 [History] OxyCODONE/APAP 10/325 [Percocet 10/325 MG] 1 each PO Q6HR PRN #20 tablet [Rx] glyBURIDE [GlyBURIDE] 5 mg PO BID 06/19/15 [History] metFORMIN [Glucophage] 1,000 mg PO BID 06/19/15 [History] Tamsulosin [Flomax] 0.4 mg PO DAILY #21 cap.er.24h 05/20/16 [Rx] Cyclobenzaprine [Flexeril] 10 mg PO TID 06/14/17 [History] Alogliptin Benzoate [Alogliptin] 25 mg PO DAILY 06/15/17 [History] Cholecalciferol (D-3) [Vitamin D] 1,000 unit PO DAILY 06/15/17 [History] Diclofenac Sodium [Voltaren] 75 mg PO BID 06/15/17 [History] Fluticasone Propionate Nasal [Flonase] 1 spr NS DAILY 06/15/17 [History] Loratadine [Allergy Relief] 10 mg PO DAILY 06/15/17 [History] Montelukast [Singulair] 10 mg PO HS 06/15/17 [History] Potassium Chloride [K-Tab ER] 20 meq PO DAILY 06/15/17 [History] Pregabalin [Lyrica] 200 mg PO BID 06/15/17 [History] Ranitidine HCl [Acid Air Conditioning Specialist] 150 mg PO DAILY 06/15/17 [History] Simvastatin [Zocor] 20 mg PO HS 06/15/17 [History] Metoprolol [Lopressor] 12.5 mg PO BID #30 tablet 06/17/17 [Rx] Nicotine Patch [Nicoderm] 21 mg TD DAILY #30 patch.td24 06/17/17 [Rx] Allergies/Adverse Reactions: 3 Allergy/AdvReac Type Severity Reaction Status Date / Time Penicillins [PCN] AdvReac Unknown BLEEDING Verified 06/14/17 18:59 Date of admission: 06/15/17 00:48 Primary care physician: Naya Pettit CNP Consults: 06/16/17 11:42 consult to strategy director [Consult to Nutrition] [CONS] Routine Comment: ADA Diet Consulting Provider: NUTRITION Reason for Dietary Consult: Other Diet Education Discharging clinician: Tiffanie Morales Anticipated date of discharge: 06/17/17 - Constitutional Vitals: Temp Pulse Resp BP Pulse Ox 98.2 F 113 14 117/71 98 06/17/17 10:37 06/17/17 10:37 06/17/17 10:37 06/17/17 10:37 06/17/17 10:37 General appearance: Present: A&O X 3, morbidly obese, answers questions appropriately - Cardiovascular Cardiovascular exam: Present: RRR, +S1, +S2, tachycardia. Absent: diastolic murmur, gallop, rubs, systolic murmur - Patient Status Disposition: Home, Self-Care Condition: Good Functional capacity at discharge: independent ambulation Overall status at discharge: patient is progressing back to baseline - Discharge Instructions Instructions: Meal Planning with the Plate Model (GEN), Meal Planning with Diabetes Exchanges (GEN) Follow Up With: Naya Pettit CNP [Primary Care Provider] - 06/29/17 11:00 am - Diet and Activity Activity: resume usual activities as tolerated Diet: diabetic diet, low fat, low cholesterol, low salt diet
== END 2017-06-17 13:11 | disposition home or self-care (01) | DRG 282 ==
LOC: EMEROO 18:45 → 3ANU 18:45
PROVIDERS: ADMIT Pediatrics; ATTEND Internal Medicine